=== PATIENT | male | born 1980 | race Caucasian/White ===

== ENCOUNTER 2022-06-29 10:31 | Observation (INO) ==
[2022-06-29 10:48] VITALS: BMI 28.7
[2022-06-29 10:50] LABS: BASOPHILS % (AUTO) 0.3 % (0.2-1.0); EOSINOPHILS % (AUTO) 0.2 % (0.9-2.9); HEMATOCRIT 47.9 % (42.0-54.0); LYMPHOCYTES # (AUTO) 2.1 X10^3/uL (1.3-2.9); LYMPHOCYTES % (AUTO) 14.7 % (21.0-51.0); MEAN CORPUSCULAR HEMOGLOBIN 30.7 pg (27.0-34.0); MEAN CORPUSCULAR HGB CONC 35.6 g/dL (33.0-35.0); MEAN CORPUSCULAR VOLUME 86.2 fL (80.0-100.0); MEAN PLATELET VOLUME 7.8 fL (7.4-11.0); MONOCYTES % (AUTO) 13.7 % (0.0-13.0); NEUTROPHILS # (AUTO) 10.3 x10^3/uL (2.2-4.8); NEUTROPHILS % (AUTO) 71.1 % (42.0-75.0); RED BLOOD COUNT 5.55 X10^6/uL (4.7-6.0); RED CELL DISTRIBUTION WIDTH 12.6 % (11.6-16.5); WHITE BLOOD COUNT 14.5 X10^3/uL (3.6-10.0)
[2022-06-29 11:15] LABS: ALANINE AMINOTRANSFERASE 24 Units/L (12-78); ALBUMIN 4.1 g/dL (3.4-5.0); ALKALINE PHOSPHATASE 69 Units/L (46-116); ASPARTATE AMINO TRANSFERASE 12 Units/L (15-37); BLOOD UREA NITROGEN 20 mg/dL (7-18); CALCIUM 8.8 mg/dL (8.5-10.1); CARBON DIOXIDE 31.9 mmol/L (21-32); CHLORIDE 97 mmol/L (98-107); COR NA(FOR HYPERGLY) 136 mmol/L (136-145); CREATININE 1.06 mg/dL (0.70-1.30); SODIUM 135 mmol/L (136-145); TOTAL PROTEIN 8.4 g/dL (6.4-8.2); eGFR NON BLACK RACES > 60 (>60)
--- NOTE | 2022-06-29 11:21 | DR.ABDMALE ---
HPI Time seen Time Seen by Provider: 06/29/22 11:18 PCP Primary Care Physician: NONE Complaint Chief Complaint Doctors Comments: dennys has known cholelithiasis and developed a fever and was sent over by local [facility]. Dr Bhatt to get evaluated in [place] and probable cholecystectomy today. Chief Complaint:: PT STATES HE HAS BEEN HAVING ABD PAIN FOR A COUPLE MONTHS NOW BUT TUESDAY MORNINI IT GOT WORSE C/O OF PAIN IN THE RUQ THAT DOESNT RADIATE AND NOTHING MAKES IT BETTER OR WORSE. PT STATES SINCE TUESDAY HE HAS BEEN RUNNING A FEVER ON AND OFF WELL. COVID-19 Coronavirus risk:travel/contact w/high risk person: No Has patient experienced Coronavirus symptoms: No Mode of arrival Mode of Arrival: Ambulatory Timing Onset of Chief Complaint: 06/26/22 PMH PMH Past Medical History: No Past Surgical History: No Family History History of Family Medical Conditions: No Social History Does patient currently use any type of tobacco product: Yes Have you used tobacco products in the last 12 months: Yes Type of Tobacco Use: Cigarettes Does any household member use tobacco: Yes Alcohol Use: None Do you use any recreational Drugs:: No Lives With: Family Lives Where: Home Travel Risk Coronavirus risk:travel/contact w/high risk person: No Has patient experienced Coronavirus symptoms: No Infectious screening In the last 2 months have you had wt loss of >10#?: NO Have you had fever, night sweats or hemotysis?: No Have you traveled outside the country in the last 6 months?: No Isolation: Standard ROS Review of Systems Constitutional: Other (RUQ ABDOMINAL PAIN WITH NAUSEA) Eyes: No Symptoms Reported ENTM: No Symptoms Reported Respiratoy: No Symptoms Reported Cardiovascular: No Symptoms Reported Gastrointestinal/Abdominal: Abdominal Pain and Nausea Genitourinary: No Symptoms Reported Neurological: No Symptoms Reported Musculoskeletal: No Symptoms Reported Integumentary: No Symptoms Reported Hematologic/Lymphatic: No Symptoms Reported Endocrine: No Symptoms Reported Psychiatric: No Symptoms Reported PE Vital Signs Vital Signs: Temp Pulse Resp BP Pulse Ox O2 Del Method 04/11/20 07:00 146/79 06/29/22 12:14 19 06/29/22 11:44 18 06/29/22 10:43 98.7 F 88 18 133/84 97 Room Air General Limitations: No Limitations and Physical Limitation General Appearance: Alert and In Distress (MODERATE DISTRESS) Head Head Exam: Normal Inspection Eyes Eye exam: Normal Appearance and PERRL ENT ENT Exam: Normal Exam and Normal Oropharynx Neck Neck Exam: Normal Inspection, Full ROM and Trachea Midline Chest Chest Inspection: Normal Inspection and Symmetric Chest Wall Rise Respiratory Respiratory Exam: Normal Lung Sounds Bilat Respiratory Exam: Bilateral: Clear to Auscultation Cardiovascular Cardiovascular Exam: Regular Rate and Normal Rhythm Abdominal Exam Abdominal Exam: Normal Inspection, Normal Bowel Sounds and Soft Abdominal Tenderness: RUQ Rectal Rectal Exam: Deferred Back Back Exam: Normal Inspection and Full ROM Extremeties Extremities Exam: Normal Inspection and Full ROM Exam: Male: Deferred Neurologic Neurological Exam: Alert, Oriented X3 and CN II-XII Intact Psychiatric Psychiatric Exam: Normal Affect and Normal Mood Skin Skin Exam: Warm, Dry and Intact MDM Differential Diagnosis Differential Diagnosis: Cholelethiasis COURSE Treatment Treatment: PATIENT WAS GIVEN DILAUDID 1MG IV FOR PAIN AND ZOFRAN 4MG IV FOR NAUSEA. PATIENT WILL BE ADMITTED TO DR BHATT FOR FURTHER EVALUATION AND TREAMENT. ROR Labs Reviewed Result Diagrams: 06/30/22 04:21 06/30/22 04:21 Laboratory: WBC 14.5 X10^3/uL (3.6-10.0) H 06/29/22 10:42 RBC 5.55 X10^6/uL (4.7-6.0) 06/29/22 10:42 Hgb 17.0 g/dL (13.5-18.0) 06/29/22 10:42 Hct 47.9 % (42.0-54.0) 06/29/22 10:42 MCV 86.2 fL (80.0-100.0) 06/29/22 10:42 MCH 30.7 pg (27.0-34.0) 06/29/22 10:42 MCHC 35.6 g/dL (33.0-35.0) H 06/29/22 10:42 RDW 12.6 % (11.6-16.5) 06/29/22 10:42 Plt Count 251 X10^3/uL (150.0-450.0) 06/29/22 10:42 MPV 7.8 fL (7.4-11.0) 06/29/22 10:42 Neut % (Auto) 71.1 % (42.0-75.0) 06/29/22 10:42 Lymph % (Auto) 14.7 % (21.0-51.0) L 06/29/22 10:42 [place] % (Auto) 13.7 % (0.0-13.0) H 06/29/22 10:42 Eos % (Auto) 0.2 % (0.9-2.9) L 06/29/22 10:42 Baso % (Auto) 0.3 % (0.2-1.0) 06/29/22 10:42 Neut # (Auto) 10.3 x10^3/uL (2.2-4.8) H 06/29/22 10:42 Lymph # (Auto) 2.1 X10^3/uL (1.3-2.9) 06/29/22 10:42 [place] # (Auto) 2.0 x10^3/uL (0.3-0.8) H 06/29/22 10:42 Eos # (Auto) 0.0 x10^3/uL (0.0-0.2) 06/29/22 10:42 Baso # (Auto) 0.0 X10^3/uL (0.0-0.1) 06/29/22 10:42 Absolute Nucleated RBC 0.0 /100WBC 06/29/22 10:42 Sodium 135 mmol/L (136-145) L 06/29/22 10:42 Corrected Sodium 136 mmol/L (136-145) 06/29/22 10:42 Potassium 3.7 mmol/L (3.5-5.1) 06/29/22 10:42 Chloride 97 mmol/L (98-107) L 06/29/22 10:42 Carbon Dioxide 31.9 mmol/L (21-32) 06/29/22 10:42 BUN 20 mg/dL (7-18) H 06/29/22 10:42 Creatinine 1.06 mg/dL (0.70-1.30) 06/29/22 10:42 Est GFR (MDRD) Af Amer > 60 (>60) 06/29/22 10:42 Est GFR (MDRD) Non-Af > 60 (>60) 06/29/22 10:42 Glucose 160 mg/dL (65-99) H 06/29/22 10:42 Calcium 8.8 mg/dL (8.5-10.1) 06/29/22 10:42 Corrected Calcium TNP 06/29/22 10:42 Total Bilirubin 1.10 mg/dL (0.2-1.0) H 06/29/22 10:42 AST 12 Units/L (15-37) L 06/29/22 10:42 ALT 24 Units/L (12-78) 06/29/22 10:42 Alkaline Phosphatase 69 Units/L (46-116) 06/29/22 10:42 Total Protein 8.4 g/dL (6.4-8.2) H 06/29/22 10:42 Albumin 4.1 g/dL (3.4-5.0) 06/29/22 10:42 Globulin 4.3 g/dL (2.5-4.5) 06/29/22 10:42 Albumin/Globulin Ratio 1.0 Ratio (1.1-2.1) L 06/29/22 10:42 SARS-CoV-2 (PCR) Negative (NEGATIVE) 06/29/22 11:30 Influenza Type A (PCR) Negative (NEGATIVE) 06/29/22 11:30 Influenza Type B (PCR) Negative (NEGATIVE) 06/29/22 11:30 RSV (PCR) Positive (NEGATIVE) A 06/29/22 11:30 Opioid Opioid Risk Tool Age (Carlos box if 16-45): No History of Preadolescent Sexual Abuse: No Total: 0 Total Score Risk Category: Low Risk Copyright: Phu LA predicting aberrant behaviors Discharge Plan Diagnosis Discharge Problem: Cholelithiasis Discharge Plan Patient Disposition: 09 ADMITTED INPATIENT Condition: Stable Orders to Discharge Patient Discharge Orders: Discharge (Routine); Ordered 06/30/22 Ordered By: RONY WILSON
[2022-06-29] MEDS ORDERED: ZOFRAN INJ 4 MG VIAL IVP ONE (11:37)
[2022-06-29] MEDS ORDERED: DILAUDID INJ IVP ONE (11:37)
[2022-06-29] MEDS ORDERED: DILAUDID INJ ONE ×2 (11:39→18:07)
[2022-06-29] MEDS ORDERED: ZOFRAN INJ 4 MG VIAL ONE ×2 (11:39→15:23)
[2022-06-29] MEDS ORDERED: DILAUDID INJ IVP PRN ×2 (12:23→15:15)
[2022-06-29] MEDS: ZOSYN VIAL 3.375 GRAMS 3.375 G in NS 100 ML IV 100 ML IV SCH ×3 (13:28→21:21)
[2022-06-29] MEDS: NS 1,000 ML IV 1,000 ML IV SCH ×2 (13:29→21:22)
--- NOTE | 2022-06-29 14:40 | DR.CONSULT ---
CONSULT Consultation for Day of: Date: 06/29/22 Chief Complaint Chief Complaint: Abdominal pain Nausea Allergies Allergies Allergy/AdvReac Type Severity Reaction Status Date / Time No Known Drug Allergies Allergy Verified 04/11/20 05:02 History of Present Illness History of Present Illness: Pt is a 41 year old male no past medical history presenting with worsening abdominal pain and nausea for the past three days. He reports pain in right upper quadrant and nothing making pain better or worse. Labs/imaging: Wbc 14.5, Hgb 17, Plt 251, Na 136, K 3.7, Creatinine 1.06, Glucose 160. CTAP was obtained that revealed: Two small gallstones are seen without evidence cholecystitis or biliary ductal dilation. Ekg was reviewed, normal sinus rhythm. Pt is currently on no medications and has no allergies. Consulted for medical clearance of surgery for cholelithiasis. Pt is stable and medically cleared to proceed. Past Surgical History Surgical History: Tonsillectomy Family History Family Medical History: Diabetes Mellitus and Hypertension Social History Does patient currently use any type of tobacco product: Yes Have you used tobacco products in the last 12 months: Yes Type of Tobacco Use: Cigarettes Does any household member use tobacco: Yes Alcohol Use: None Drug Use: None Medications Home Medications: No Known Drug Allergies Allergy (Verified 04/11/20 05:02) CONTINUE taking the following medications NK 06/29/22 [History] Review of Systems Constitutional: No Symptoms Reported Eyes: No Symptoms Reported ENT: No Symptoms Reported Respiratory: No Symptoms Reported Cardiovascular: No Symptoms Reported Gastrointestinal: Nausea and Abdominal Pain Genitourinary: No Symptoms Reported Musculoskeletal: No Symptoms Reported Skin: No Symptoms Reported Neurological: No Symptoms Reported Physical Exam Vital Signs: Temperature 98.2 F Pulse Rate 75 Respiratory Rate 18 Blood Pressure 124/79 O2 Sat by Pulse Oximetry 95 Oriented: Normal Eyes: Normal Ear: Normal Nose: Normal Throat: Normal Respiratory: Clear Throughout Cardiovascular: Normal : Normal Auscultation: Bowel Sounds: Normal Palpation: Normal Tenderness: RUQ and Moderate Skin: Normal Musculoskeletal: Normal Psychiatric: Normal Speech Pattern: Clear Plan (1) Gallbladder colic: Status: Acute Narrative Support Text: Medically cleared for surgery General surgery is primary (2) Cholelithiasis: Status: Acute Qualifiers: Biliary obstruction: without biliary obstruction Cholecystitis presence: without cholecystitis Cholelithiasis location: gallbladder Qualified Code(s): K80.20 - Calculus of gallbladder without cholecystitis without obstruction (3) Abdominal pain, RUQ: Status: Acute
[2022-06-29] MEDS ORDERED: BACTROBAN TOPICAL OINT ONE (15:08)
--- NOTE | 2022-06-29 15:10 | RAD ---
HISTORYRelevant Clinical Information pre op gallbladderSTUDYCHEST, 1 VIEWCOMPARISONNoneFINDINGSThe trachea is midline. The cardiac silhouette is unremarkable. The lungs are clear without focal infiltrate or effusion. The bony thorax is unremarkable.IMPRESSIONNo acute cardiopulmonary disease.Electronically signed by: MARCUS ADAMS (Jun 29, 2022 15:08:35)
[2022-06-29] MEDS ORDERED: ZOFRAN INJ 4 MG VIAL IVP PRN (15:15)
[2022-06-29] MEDS ORDERED: BENADRYL INJ 50 MG VIAL IVP PRN (15:15)
[2022-06-29] MEDS ORDERED: REGLAN INJ 10 MG VIAL IVP PRN (15:15)
[2022-06-29] MEDS ORDERED: BARHEMSYS INJ IVP PRN (15:15)
[2022-06-29] MEDS ORDERED: PHENERGAN INJ 25 MG IM PRN (15:15)
[2022-06-29] MEDS ORDERED: PRECEDEX INJ VIAL IVP ONE (15:21)
[2022-06-29] MEDS ORDERED: DIPRIVAN VIAL 20 ML ONE (15:21)
[2022-06-29] MEDS ORDERED: PEPCID 20 MG VIAL ONE (15:23)
[2022-06-29] MEDS ORDERED: BENADRYL INJ 50 MG VIAL ONE (15:23)
[2022-06-29] MEDS ORDERED: ZEMURON 100 MG VIAL ONE (15:23)
[2022-06-29] MEDS ORDERED: DECADRON INJ ONE (15:23)
[2022-06-29] MEDS ORDERED: QUELICIN (OR ANECTINE) ONE (15:23)
[2022-06-29] MEDS ORDERED: FENTANYL VIAL INJ 100 mcg ONE ×2 (15:28→16:38)
[2022-06-29] MEDS ORDERED: NS 100 ML IV 100 ML ONE (15:30)
[2022-06-29] MEDS ORDERED: NS 1,000 ML IV 1,000 ML ONE ×2 (15:30→17:15)
[2022-06-29] MEDS ORDERED: ANCEF VIAL 1 GRAM ONE (15:30)
[2022-06-29] MEDS ORDERED: BRIDION ONE (16:54)
[2022-06-29] MEDS: DILAUDID INJ IVP PRN ×2 (18:52→23:00)
[2022-06-29] MEDS: ZOFRAN INJ 4 MG VIAL IVP PRN (23:43)
[2022-06-30] MEDS: DILAUDID INJ IVP PRN ×2 (03:00→07:15)
[2022-06-30] MEDS: ZOSYN VIAL 3.375 GRAMS 3.375 G in NS 100 ML IV 100 ML IV SCH (05:05)
[2022-06-30] MEDS: NS 1,000 ML IV 1,000 ML IV SCH ×2 (05:05→12:05)
[2022-06-30 05:31] LABS: BASOPHILS % (AUTO) 0.2 % (0.2-1.0); HEMATOCRIT 40.6 % (42.0-54.0); LYMPHOCYTES # (AUTO) 1.4 X10^3/uL (1.3-2.9); MEAN CORPUSCULAR HEMOGLOBIN 30.5 pg (27.0-34.0); MEAN CORPUSCULAR HGB CONC 35.4 g/dL (33.0-35.0); MEAN CORPUSCULAR VOLUME 86.1 fL (80.0-100.0); MEAN PLATELET VOLUME 8.1 fL (7.4-11.0); MONOCYTES # (AUTO) 1.7 x10^3/uL (0.3-0.8); MONOCYTES % (AUTO) 14.4 % (0.0-13.0); NEUTROPHILS # (AUTO) 8.8 x10^3/uL (2.2-4.8); NEUTROPHILS % (AUTO) 73.4 % (42.0-75.0); RED BLOOD COUNT 4.71 X10^6/uL (4.7-6.0); RED CELL DISTRIBUTION WIDTH 12.8 % (11.6-16.5); WHITE BLOOD COUNT 11.9 X10^3/uL (3.6-10.0)
[2022-06-30 05:34] LABS: HEMOGLOBIN 14.4 g/dL (13.5-18.0)
[2022-06-30 05:38] LABS: ALANINE AMINOTRANSFERASE 25 Units/L (12-78); ALBUMIN 3.1 g/dL (3.4-5.0); ALKALINE PHOSPHATASE 60 Units/L (46-116); ASPARTATE AMINO TRANSFERASE 19 Units/L (15-37); BLOOD UREA NITROGEN 14 mg/dL (7-18); CALCIUM 7.7 mg/dL (8.5-10.1); CARBON DIOXIDE 27.7 mmol/L (21-32); CHLORIDE 100 mmol/L (98-107); COR CA(FOR HYPOALB) 8.4 mg/dL (8.5-10.1); COR NA(FOR HYPERGLY) 136 mmol/L (136-145); CREATININE 0.82 mg/dL (0.70-1.30); SODIUM 135 mmol/L (136-145); TOTAL PROTEIN 6.8 g/dL (6.4-8.2); eGFR NON BLACK RACES > 60 (>60)
[2022-06-30] MEDS: ZOFRAN INJ 4 MG VIAL IVP PRN (07:34)
[2022-06-30 11:56] VITALS: BP 139/80
== END 2022-06-30 12:35 | disposition home or self-care (01) ==
LOC: ICU 10:31 → ER 10:31 → ICU 12:55
PROVIDERS: ADMIT Surgery; ATTEND Surgery
DX: R94.31 Abnormal electrocardiogram [ECG] [EKG]; K80.12 Calculus of gallbladder with acute and chronic cholecystitis without obstruction; B97.4 Respiratory syncytial virus as the cause of diseases classified elsewhere; R10.11 Right upper quadrant pain; I10 Essential (primary) hypertension; K82.1 Hydrops of gallbladder; Z20.822 Contact with and (suspected) exposure to COVID-19; K82.8 Other specified diseases of gallbladder